=== PATIENT | female | born 1975 | race African-American/Black ===

== ENCOUNTER 2024-02-12 11:00 | Emergency (ER) | payer MEDICAID ==
[~2024-02-12] VITALS: Ht 175.2 cm; Wt 95.3 kg
[2024-02-12] MEDS ORDERED: MORPHINE Sulfate 2 MG/ML SYR IV ONE ×2 (11:35→12:35)
[2024-02-12 14:03] LABS: BASO % 0.4 % (0.0-1.0); EOS # 0.1 10*3/uL (0.0-0.4); EOS % 0.9 % (1.0-4.0); HEMATOCRIT 33.9 % (37.0-47.0); LYMPH # 2.3 10*3/uL (1.3-4.4); LYMPH % 22.4 % (27.0-41.0); MEAN CELL VOLUME 93.6 fl (81.0-99.0); MEAN CORPUSCULAR HGB 28.2 pg (27.0-31.0); MEAN CORPUSCULAR HGB CONC 30.1 g/dl (33.0-37.0); MEAN PLATELET VOLUME 8.6 fl (9.6-12.3); MONO # 0.7 10*3/uL (0.1-1.0); MONO % 7.1 % (3.0-9.0); NEUT % 68.8 % (47.0-73.0); PLATELET COUNT AUTOMATED 589 10*3/uL (130-400); RED BLOOD COUNT 3.62 10*6/uL (4.10-5.10); RED CELL DISTRI WIDTH 17.2 % (0-14.5); WHITE BLOOD COUNT 10.1 10*3/uL (4.8-10.8)
[2024-02-12 14:23] LABS: ALKALINE PHOSPHATASE 197 U/L (46-116); BUN 26 mg/dl (9-23); CHLORIDE 105 mmol/L (98-107); CPK 18 U/L (34-171); POTASSIUM 4.4 mmol/L (3.4-5.1); SGPT/ALT 13 U/L (5-49); TOTAL PROTEIN 7.3 gm/dL (6.0-8.0)
[2024-02-12] MEDS ORDERED: ACETAMINOPHEN325 M2 PO (15:21)
[2024-02-12] MEDS ORDERED: ATIVAN0.5 MG PO (15:22)
[2024-02-12] MEDS ORDERED: ASPIRIN81 M1 PO (15:22)
[2024-02-12] MEDS ORDERED: ATIVAN1 MG PO (15:24)
[2024-02-12] MEDS ORDERED: DULCOLAX10 M1 R (15:25)
[2024-02-12] MEDS ORDERED: FENTANYL1 EAC3 T (15:29)
[2024-02-12] MEDS ORDERED: ACIDOPHILUS1 EAC4 PO (15:30)
[2024-02-12] MEDS ORDERED: TRESIBA FL100 UNIT/1 SQ (15:32)
[2024-02-12] MEDS ORDERED: INSULIN LI100 UNIT/1 SQ (15:35)
[2024-02-12] MEDS ORDERED: MELOXICAM15 MG PO (15:36)
[2024-02-12] MEDS ORDERED: MONTELUKAST SOD10 MG PO (15:36)
[2024-02-12] MEDS ORDERED: OXYCODONE HCL10 M1 PO (15:37)
[2024-02-12] MEDS ORDERED: NEURONTIN400 MG PO (15:37)
[2024-02-12] MEDS ORDERED: PRILOSEC20 M1 PO (15:38)
[2024-02-12 15:44] LABS: BILIRUBIN Negative (Negative); BLOOD 3+ (Negative); CLARITY Turbid (Clear); COLOR Dark Yellow (Yellow); GLUCOSE Negative (Negative); KETONE Trace (Negative); LEUKO ESTERASE 3+ (Negative); NITRITE Negative (Negative); SPECIFIC GRAVITY 1.025 (1.001-1.030); UROBILINOGEN 0.2 E.U./dl (0.0-1.0)
[2024-02-12 16:00] LABS: BACTERIA 3+; RBC TNTC rbc/hpf (0-2); WBC TNTC wbc/hpf (0-5)
[2024-02-12 16:02] LABS: CALCIUM OXALATE CRYSTALS 1+
[2024-02-12] MEDS ORDERED: WELLBUTRIN SR150 MG PO (16:09)
[2024-02-12] MEDS ORDERED: B-100 COMPLEX100 MG PO (16:10)
[2024-02-12] MEDS ORDERED: XARE20MG PO (16:11)
[2024-02-12] MEDS ORDERED: VITAMIN C500 M4 PO (16:11)
[2024-02-12] MEDS ORDERED: ZINC-22050 MG PO (16:12)
[2024-02-12] MEDS ORDERED: Ondansetron4 MG PO (16:13)
[2024-02-12] MEDS ORDERED: Ceftriaxone Sodium 1 GM/10 ML SYR IV ONE (16:20)
== END 2024-02-12 17:18 ==
LOC: ED 11:00
PROVIDERS: Physician Assistant Medical
DX: L89.154 Pressure ulcer of sacral region, stage 4 (principal); L89.894 Pressure ulcer of other site, stage 4; L89.524 Pressure ulcer of left ankle, stage 4; L89.514 Pressure ulcer of right ankle, stage 4; L89.212 Pressure ulcer of right hip, stage 2; L89.814 Pressure ulcer of head, stage 4; N39.0 Urinary tract infection, site not specified; I10 Essential (primary) hypertension; E11.9 Type 2 diabetes mellitus without complications; Z88.0 Allergy status to penicillin; Z79.899 Other long term (current) drug therapy; Z79.82 Long term (current) use of aspirin; Z79.4 Long term (current) use of insulin

== ENCOUNTER 2024-02-19 01:27 | Emergency (ER) | payer MEDICAID ==
[~2024-02-19 01:27] MED LIST: ACETAMINOPHEN325 M2 PO; ACIDOPHILUS1 EAC4 PO; ASPIRIN81 M1 PO; ATIVAN0.5 MG PO; ATIVAN1 MG PO; B-100 COMPLEX100 MG PO; DULCOLAX10 M1 R; FENTANYL1 EAC3 T; INSULIN LI100 UNIT/1 SQ; MELOXICAM15 MG PO; MONTELUKAST SOD10 MG PO; NEURONTIN400 MG PO; OXYCODONE HCL10 M1 PO; Ondansetron4 MG PO; PRILOSEC20 M1 PO; TRESIBA FL100 UNIT/1 SQ; VITAMIN C500 M4 PO; WELLBUTRIN SR150 MG PO; XARE20MG PO; ZINC-22050 MG PO
[2024-02-19 02:02] LABS: BASO % 0.3 % (0.0-1.0); EOS % 0.3 % (1.0-4.0); HEMATOCRIT 35.6 % (37.0-47.0); LYMPH # 2.8 10*3/uL (1.3-4.4); LYMPH % 21.1 % (27.0-41.0); MEAN CELL VOLUME 93.4 fl (81.0-99.0); MEAN CORPUSCULAR HGB 28.1 pg (27.0-31.0); MEAN CORPUSCULAR HGB CONC 30.1 g/dl (33.0-37.0); MEAN PLATELET VOLUME 8.7 fl (9.6-12.3); MONO # 0.9 10*3/uL (0.1-1.0); MONO % 6.9 % (3.0-9.0); NEUT # 9.3 10*3/uL (2.3-7.9); NEUT % 71.1 % (47.0-73.0); PLATELET COUNT AUTOMATED 748 10*3/uL (130-400); RED BLOOD COUNT 3.81 10*6/uL (4.10-5.10); RED CELL DISTRI WIDTH 17.5 % (0-14.5); WHITE BLOOD COUNT 13.1 10*3/uL (4.8-10.8)
[2024-02-19 02:24] LABS: ALKALINE PHOSPHATASE 199 U/L (46-116); BUN 30 mg/dl (9-23); CHLORIDE 107 mmol/L (98-107); POTASSIUM 4.1 mmol/L (3.4-5.1); SGPT/ALT 19 U/L (5-49); TOTAL PROTEIN 7.9 gm/dL (6.0-8.0)
[2024-02-19] MEDS ORDERED: SODIUM CHLORIDE 0.9% 1,000 ML IV ONE (05:35)
[2024-02-19] MEDS ORDERED: MAGNESIUM OXIDE 400 MG TAB PO ONE (05:35)
[2024-02-19] MEDS ORDERED: Acetaminophen/Hydrocodone 5 MG/325 MG TABLET PO ONE (06:15)
[2024-02-19] MEDS ORDERED: Ondansetron Hydrochloride 4 MG TAB SL ONE (06:15)
[2024-02-19] MEDS ORDERED: VAZALORE81 MG PO (15:19)
[2024-02-19] MEDS ORDERED: VITAMIN D31250 MC2 PO (15:25)
[2024-02-19] MEDS ORDERED: LOTRISONE 0.05%15 GM T (15:29)
[2024-02-19] MEDS ORDERED: FLEET ENEMA 13133 ML R (15:34)
[2024-02-19] MEDS ORDERED: IMODIUM A-1 MG/7.51 PO (15:38)
[2024-02-19] MEDS ORDERED: LITHIUM CARBON300 MG PO (15:40)
[2024-02-19] MEDS ORDERED: MILK OF MA400 MG/53 PO (15:42)
[2024-02-19] MEDS ORDERED: OXYCODONE HCL10 M1 PO (15:57)
[2024-02-19] MEDS ORDERED: OXYCODONE HCL5 MG PO (15:59)
[2024-02-19] MEDS ORDERED: PAROEX473 ML PO (16:04)
[2024-02-19] MEDS ORDERED: RISPERDAL0.5 MG PO (16:12)
[2024-02-19] MEDS ORDERED: [UNRECOGNIZED DRUG - OTHER] PO (16:18)
== END 2024-02-19 07:48 | disposition left against medical advice (07) ==
LOC: ED 01:27
PROVIDERS: Internal Medicine
DX: L89.134 Pressure ulcer of right lower back, stage 4 (principal); L89.144 Pressure ulcer of left lower back, stage 4; E83.52 Hypercalcemia; E83.42 Hypomagnesemia; D72.829 Elevated white blood cell count, unspecified; D64.9 Anemia, unspecified; E43 Unspecified severe protein-calorie malnutrition; Z68.1 Body mass index [BMI] 19.9 or less, adult; D75.839 Thrombocytosis, unspecified; E11.22 Type 2 diabetes mellitus with diabetic chronic kidney disease; N18.9 Chronic kidney disease, unspecified; N17.9 Acute kidney failure, unspecified; Z86.73 Personal history of transient ischemic attack (TIA), and cerebral infarction without residual deficits; F41.9 Anxiety disorder, unspecified; Z53.29 Procedure and treatment not carried out because of patient's decision for other reasons; Z88.0 Allergy status to penicillin

== ENCOUNTER 2024-02-19 11:37 | Inpatient (IN) | payer MEDICAID ==
[~2024-02-19] VITALS: Ht 175.2 cm; Wt 95.3 kg
[2024-02-19 13:00] VITALS: BP 114/90
[2024-02-19] MEDS ORDERED: Acetaminophen/Hydrocodone 5 MG/325 MG TABLET PO PRN (13:35)
[2024-02-19] MEDS ORDERED: Ondansetron Hydrochloride 4 MG/2 ML VIAL IV PRN (13:35)
[2024-02-19] MEDS ORDERED: Magnesium Hydroxide 30 ML UDC PO PRN (13:35)
[2024-02-19] MEDS ORDERED: TEMAZEPAM 15 MG CAP PO PRN (13:35)
[2024-02-19] MEDS ORDERED: ACETAMINOPHEN 325 MG TAB PO PRN (13:35)
[2024-02-19] MEDS ORDERED: MORPHINE Sulfate 2 MG/ML SYR IV PRN (13:35)
[2024-02-19] MEDS ORDERED: BISACODYL 5 MG TAB PO PRN (13:35)
[2024-02-19] MEDS ORDERED: SODIUM CHLORIDE 0.9% 1,000 ML IV ONE (13:45)
[2024-02-19] MEDS ORDERED: Menthol/Zinc Oxide 4 GM THIN T SCH (13:55)
[2024-02-19] MEDS ORDERED: DEXTROSE 10 % IN WATER 250 ML IV PRN (13:55)
[2024-02-19] MEDS ORDERED: Meropenem 1 GM in SODIUM CHLORIDE 0.9% 100 ML IV SCH (14:00)
[2024-02-19] MEDS ORDERED: FOAM BANDAGE 5X5 T ONE (14:36)
[2024-02-19] MEDS ORDERED: HEEL PROTECTOR DEVICE ONE (14:36)
[2024-02-19] MEDS ORDERED: FOAM BANDAGE 6X6 T ONE (14:36)
[2024-02-19] MEDS ORDERED: fentaNYL 25 MCG PATCH T SCH (15:05)
[2024-02-19] MEDS ORDERED: OXYCODONE HCL (IR) 5 MG TAB PO PRN (15:05)
[2024-02-19] MEDS ORDERED: LORazepam 1 MG TAB PO PRN (15:05)
[2024-02-19] MEDS ORDERED: VAZALORE81 MG PO (15:19)
[2024-02-19] MEDS ORDERED: VITAMIN D31250 MC2 PO (15:25)
[2024-02-19] MEDS ORDERED: MAGNESIUM SULFATE 50 ML IV ONE (15:25)
[2024-02-19] MEDS ORDERED: LOTRISONE 0.05%15 GM T (15:29)
[2024-02-19] MEDS ORDERED: FLEET ENEMA 13133 ML R (15:34)
[2024-02-19] MEDS ORDERED: IMODIUM A-1 MG/7.51 PO (15:38)
[2024-02-19] MEDS ORDERED: LITHIUM CARBON300 MG PO (15:40)
[2024-02-19] MEDS ORDERED: MILK OF MA400 MG/53 PO (15:42)
[2024-02-19] MEDS ORDERED: OXYCODONE HCL10 M1 PO (15:57)
[2024-02-19] MEDS ORDERED: OXYCODONE HCL5 MG PO (15:59)
[2024-02-19] MEDS ORDERED: PAROEX473 ML PO (16:04)
[2024-02-19] MEDS ORDERED: RISPERDAL0.5 MG PO (16:12)
[2024-02-19] MEDS ORDERED: [UNRECOGNIZED DRUG - OTHER] PO (16:18)
[2024-02-19] MEDS ORDERED: INSULIN LISPRO 1 UNIT/0.01 ML SQ SCH (16:30)
[2024-02-19] MEDS ORDERED: DIAZEPAM 10 MG/2 ML SYR IV ONE (17:00)
[2024-02-19] MEDS ORDERED: Chlorhexidine Gluconate 15 ML MOUTHWASH T SCH (18:00)
[2024-02-19] MEDS ORDERED: RIVAROXABAN 20 MG TAB PO SCH (18:00)
[2024-02-19 20:00] VITALS: BP 115/65
[2024-02-19] MEDS ORDERED: VANCOMYCIN/WATER FOR INJ (PEG) 250 ML IV SCH (22:00)
[2024-02-19] MEDS ORDERED: RISPERIDONE 0.5 MG TAB PO SCH (22:00)
[2024-02-19] MEDS ORDERED: Montelukast Sodium 10 MG TAB PO SCH (22:00)
[2024-02-19] MEDS ORDERED: NYSTATIN 15 GM BOT T SCH (22:00)
[2024-02-19] MEDS ORDERED: OXYCODONE HCL (IR) 10 MG TABLET PO SCH (22:00)
[2024-02-20 06:48] LABS: BILIRUBIN Negative (Negative); BLOOD 3+ (Negative); CLARITY Turbid (Clear); COLOR Yellow (Yellow); GLUCOSE Negative (Negative); KETONE 1+ (Negative); LEUKO ESTERASE 3+ (Negative); NITRITE Positive (Negative); SPECIFIC GRAVITY 1.025 (1.001-1.030)
[2024-02-20 07:01] LABS: WBC TNTC wbc/hpf (0-5)
[2024-02-20 07:02] LABS: BACTERIA 2+; CALCIUM OXALATE CRYSTALS 1+; RBC 21-30 rbc/hpf (0-2)
[2024-02-20 08:00] VITALS: BP 118/57
[2024-02-20] MEDS ORDERED: FOAM BANDAGE 6X6 T ONE ×2 (08:40)
[2024-02-20] MEDS ORDERED: FOAM BANDAGE 5X5 T ONE (08:40)
[2024-02-20] MEDS ORDERED: HYDROGEL WOUND DRESSING T ONE (08:40)
[2024-02-20 09:00] LABS: BASO # 0.1 10*3/uL (0.0-0.1); BASO % 0.3 % (0.0-1.0); EOS # 0.3 10*3/uL (0.0-0.4); EOS % 1.6 % (1.0-4.0); HEMATOCRIT 34.1 % (37.0-47.0); LYMPH % 22.8 % (27.0-41.0); MEAN CELL VOLUME 93.9 fl (81.0-99.0); MEAN CORPUSCULAR HGB 27.5 pg (27.0-31.0); MEAN CORPUSCULAR HGB CONC 29.3 g/dl (33.0-37.0); MEAN PLATELET VOLUME 8.8 fl (9.6-12.3); MONO # 1.2 10*3/uL (0.1-1.0); MONO % 6.9 % (3.0-9.0); NEUT # 11.8 10*3/uL (2.3-7.9); NEUT % 67.9 % (47.0-73.0); PLATELET COUNT AUTOMATED 629 10*3/uL (130-400); RED BLOOD COUNT 3.63 10*6/uL (4.10-5.10); RED CELL DISTRI WIDTH 17.2 % (0-14.5); WHITE BLOOD COUNT 17.4 10*3/uL (4.8-10.8)
[2024-02-20 09:24] LABS: POTASSIUM 4.6 mmol/L (3.4-5.1); TOTAL PROTEIN 7.4 gm/dL (6.0-8.0)
[2024-02-20] MEDS ORDERED: RIVAROXABAN 20 MG TAB PO SCH (10:00)
[2024-02-20] MEDS ORDERED: OMEPRAZOLE 20 MG CAP PO SCH (10:00)
[2024-02-20] MEDS ORDERED: buPROPion SR 150 MG TAB PO SCH (10:00)
[2024-02-20] MEDS ORDERED: Sodium Hypochlorite 0.125% (1/4 STRENGTH DAKIN'S) 480 ML SOL T SCH ×2 (10:00)
[2024-02-20] MEDS ORDERED: ASCORBIC ACID 500 MG TAB PO SCH (10:00)
[2024-02-20] MEDS ORDERED: HYDROmorphONE Hydrochloride 1 MG/ML SYR IV ONE (10:30)
[2024-02-20 12:00] VITALS: BP 128/42; BP 136/47
[2024-02-20 16:00] VITALS: BP 138/91
[2024-02-20 20:00] VITALS: BP 135/91; BP 140/54
[2024-02-21] VITALS: BP 130/86; BP 137/101
[2024-02-21 08:00] VITALS: BP 95/62
[2024-02-21 12:00] VITALS: BP 123/82
[2024-02-21 16:00] VITALS: BP 100/60; BP 139/98
[2024-02-21 20:00] VITALS: BP 152/97
[2024-02-21] MEDS ORDERED: Sodium Hypochlorite 0.125% (1/4 STRENGTH DAKIN'S) 480 ML SOL T SCH (22:00)
[2024-02-22] VITALS: BP 115/61
[2024-02-22] MEDS ORDERED: FOAM BANDAGE 4X4 T ONE (04:39)
[2024-02-22] MEDS ORDERED: FOAM BANDAGE 1 EACH BANDAGE T ONE ×2 (04:39)
[2024-02-22 05:53] LABS: ALKALINE PHOSPHATASE 193 U/L (46-116); BUN 34 mg/dl (9-23); CHLORIDE 114 mmol/L (98-107); POTASSIUM 3.7 mmol/L (3.4-5.1); SGPT/ALT 40 U/L (5-49); TOTAL PROTEIN 6.9 gm/dL (6.0-8.0)
[2024-02-22 06:03] LABS: BASO # 0.1 10*3/uL (0.0-0.1); BASO % 0.5 % (0.0-1.0); EOS # 0.6 10*3/uL (0.0-0.4); EOS % 5.2 % (1.0-4.0); HEMATOCRIT 31.1 % (37.0-47.0); LYMPH # 2.5 10*3/uL (1.3-4.4); LYMPH % 22.9 % (27.0-41.0); MEAN CELL VOLUME 92.3 fl (81.0-99.0); MEAN CORPUSCULAR HGB 28.2 pg (27.0-31.0); MEAN CORPUSCULAR HGB CONC 30.5 g/dl (33.0-37.0); MEAN PLATELET VOLUME 8.8 fl (9.6-12.3); MONO # 0.8 10*3/uL (0.1-1.0); MONO % 7.1 % (3.0-9.0); NEUT % 63.8 % (47.0-73.0); PLATELET COUNT AUTOMATED 611 10*3/uL (130-400); RED BLOOD COUNT 3.37 10*6/uL (4.10-5.10); RED CELL DISTRI WIDTH 17.2 % (0-14.5)
[2024-02-22 08:00] VITALS: BP 145/99
[2024-02-22 16:00] VITALS: BP 110/60
[2024-02-22 20:00] VITALS: BP 128/74
[2024-02-23 06:44] LABS: BASO % 0.2 % (0.0-1.0); EOS % 0.2 % (1.0-4.0); HEMATOCRIT 31.7 % (37.0-47.0); LYMPH # 1.4 10*3/uL (1.3-4.4); LYMPH % 17.8 % (27.0-41.0); MEAN CELL VOLUME 93.8 fl (81.0-99.0); MEAN CORPUSCULAR HGB 27.8 pg (27.0-31.0); MEAN CORPUSCULAR HGB CONC 29.7 g/dl (33.0-37.0); MONO # 0.4 10*3/uL (0.1-1.0); MONO % 5.3 % (3.0-9.0); NEUT # 6.1 10*3/uL (2.3-7.9); PLATELET COUNT AUTOMATED 583 10*3/uL (130-400); RED BLOOD COUNT 3.38 10*6/uL (4.10-5.10); RED CELL DISTRI WIDTH 17.5 % (0-14.5); WHITE BLOOD COUNT 8.1 10*3/uL (4.8-10.8)
[2024-02-23 07:43] LABS: ALKALINE PHOSPHATASE 192 U/L (46-116); BUN 34 mg/dl (9-23); CHLORIDE 116 mmol/L (98-107); POTASSIUM 3.4 mmol/L (3.4-5.1); SGPT/ALT 49 U/L (5-49); TOTAL PROTEIN 6.7 gm/dL (6.0-8.0)
[2024-02-23 08:00] VITALS: BP 107/82
[2024-02-23] MEDS ORDERED: Vancomycin Hydrochloride 1,000 MG in SODIUM CHLORIDE 0.9% 250 ML IV SCH (10:00)
[2024-02-23 12:00] VITALS: BP 110/86
[2024-02-23] MEDS ORDERED: HYDROmorphONE Hydrochloride 0.5 MG/0.5 ML SYRINGE IV ONE (14:35)
[2024-02-23 20:00] VITALS: BP 113/72
[2024-02-24] VITALS: BP 93/72
[2024-02-24] MEDS ORDERED: FOAM BANDAGE 1 EACH BANDAGE T ONE (05:31)
[2024-02-24 08:00] VITALS: BP 97/72
[2024-02-24 08:41] LABS: BUN 36 mg/dl (9-23); CHLORIDE 122 mmol/L (98-107); POTASSIUM 3.3 mmol/L (3.4-5.1)
[2024-02-24] MEDS ORDERED: POTASSIUM CHLORIDE 20 MEQ TAB PO ONE (09:05)
[2024-02-24 09:40] LABS: BASO % 0.3 % (0.0-1.0); EOS # 0.4 10*3/uL (0.0-0.4); EOS % 3.8 % (1.0-4.0); HEMATOCRIT 38.9 % (37.0-47.0); MEAN CELL VOLUME 93.1 fl (81.0-99.0); MEAN CORPUSCULAR HGB 27.8 pg (27.0-31.0); MEAN CORPUSCULAR HGB CONC 29.8 g/dl (33.0-37.0); MEAN PLATELET VOLUME 8.8 fl (9.6-12.3); MONO # 0.8 10*3/uL (0.1-1.0); MONO % 7.9 % (3.0-9.0); NEUT # 7.2 10*3/uL (2.3-7.9); NEUT % 68.5 % (47.0-73.0); PLATELET COUNT AUTOMATED 617 10*3/uL (130-400); RED BLOOD COUNT 4.18 10*6/uL (4.10-5.10); RED CELL DISTRI WIDTH 18.4 % (0-14.5); WHITE BLOOD COUNT 10.5 10*3/uL (4.8-10.8)
[2024-02-24] MEDS ORDERED: DEXTROSE 5% 1,000 ML IV SCH (09:50)
[2024-02-24 12:00] VITALS: BP 97/58
[2024-02-24 16:00] VITALS: BP 131/56
[2024-02-24 20:00] VITALS: BP 146/91
[2024-02-25 05:56] LABS: POTASSIUM 3.9 mmol/L (3.4-5.1)
[2024-02-25 06:08] LABS: BASO % 0.3 % (0.0-1.0); EOS # 0.5 10*3/uL (0.0-0.4); EOS % 4.3 % (1.0-4.0); HEMATOCRIT 32.7 % (37.0-47.0); LYMPH # 3.1 10*3/uL (1.3-4.4); LYMPH % 27.7 % (27.0-41.0); MEAN CELL VOLUME 91.3 fl (81.0-99.0); MEAN CORPUSCULAR HGB 27.7 pg (27.0-31.0); MEAN CORPUSCULAR HGB CONC 30.3 g/dl (33.0-37.0); MEAN PLATELET VOLUME 9.2 fl (9.6-12.3); MONO # 0.8 10*3/uL (0.1-1.0); MONO % 6.9 % (3.0-9.0); NEUT # 6.6 10*3/uL (2.3-7.9); NEUT % 60.3 % (47.0-73.0); PLATELET COUNT AUTOMATED 605 10*3/uL (130-400); RED BLOOD COUNT 3.58 10*6/uL (4.10-5.10); RED CELL DISTRI WIDTH 18.2 % (0-14.5)
[2024-02-25 08:00] VITALS: BP 123/71
[2024-02-25] MEDS ORDERED: Sulfamethoxazole/Trimethopri 1 TAB TAB PO SCH (10:00)
[2024-02-25 12:00] VITALS: BP 119/79
[2024-02-25] MEDS ORDERED: LITHIUM CARBONATE 300 MG CAP PO SCH (14:00)
[2024-02-25 16:00] VITALS: BP 126/60
[2024-02-25] MEDS ORDERED: Lactobacillus Acidophilus/LA 1 TAB TAB PO SCH (18:00)
[2024-02-25 20:00] VITALS: BP 95/61
[2024-02-26] VITALS: BP 91/45
[2024-02-26 06:07] LABS: POTASSIUM 3.7 mmol/L (3.4-5.1); TOTAL PROTEIN 6.2 gm/dL (6.0-8.0)
[2024-02-26 06:12] LABS: BASO % 0.4 % (0.0-1.0); EOS # 0.9 10*3/uL (0.0-0.4); EOS % 8.6 % (1.0-4.0); HEMATOCRIT 31.1 % (37.0-47.0); LYMPH # 3.2 10*3/uL (1.3-4.4); LYMPH % 31.2 % (27.0-41.0); MEAN CELL VOLUME 92.3 fl (81.0-99.0); MEAN CORPUSCULAR HGB 27.9 pg (27.0-31.0); MEAN CORPUSCULAR HGB CONC 30.2 g/dl (33.0-37.0); MEAN PLATELET VOLUME 9.7 fl (9.6-12.3); MONO # 0.7 10*3/uL (0.1-1.0); MONO % 7.2 % (3.0-9.0); NEUT # 5.3 10*3/uL (2.3-7.9); NUCLEATED RED BLOOD CELL 0.4 % (0.0-0.0); PLATELET COUNT AUTOMATED 455 10*3/uL (130-400); RED BLOOD COUNT 3.37 10*6/uL (4.10-5.10); RED CELL DISTRI WIDTH 18.8 % (0-14.5); WHITE BLOOD COUNT 10.2 10*3/uL (4.8-10.8)
[2024-02-26 08:00] VITALS: BP 98/56
[2024-02-26] MEDS ORDERED: SODIUM CHLORIDE 0.9% 100 ML BAG IV ONE (10:02)
[2024-02-26] MEDS ORDERED: Meropenem 1 GM VIAL IV ONE (10:02)
[2024-02-26] MEDS ORDERED: PREMIERPRO RX ME1 GM IV (10:18)
[2024-02-26] MEDS ORDERED: ATIVAN0.5 MG PO (10:18)
[2024-02-26] MEDS ORDERED: Humalog SQ (10:18)
[2024-02-26 12:00] VITALS: BP 100/58
[2024-02-28] MEDS ORDERED: ERGOCALCIFEROL 50,000 IU CAP (1.25 MG) PO SCH (10:00)
== END 2024-02-26 14:05 | DRG 720 ==
LOC: 4E 11:37
PROVIDERS: Family Medicine; Internal Medicine; Occupational Therapist; Student in an Organized Health Care Education/Training Program; ADMIT Student in an Organized Health Care Education/Training Program; ATTEND Student in an Organized Health Care Education/Training Program
PROC: 05H933Z Insertion of Infusion Device into Right Brachial Vein, Percutaneous Approach (ICD-10-PCS; principal; 2024-02-21)
PROC: B54MZZA Ultrasonography of Right Upper Extremity Veins, Guidance (ICD-10-PCS; 2024-02-21)
DX: A41.9 Sepsis, unspecified organism (principal); N17.0 Acute kidney failure with tubular necrosis; E43 Unspecified severe protein-calorie malnutrition; L89.154 Pressure ulcer of sacral region, stage 4; L89.314 Pressure ulcer of right buttock, stage 4; L89.324 Pressure ulcer of left buttock, stage 4; L89.814 Pressure ulcer of head, stage 4; L89.524 Pressure ulcer of left ankle, stage 4; L89.514 Pressure ulcer of right ankle, stage 4; L89.894 Pressure ulcer of other site, stage 4; L89.101 Pressure ulcer of unspecified part of back, stage 1; L89.616 Pressure-induced deep tissue damage of right heel; G82.20 Paraplegia, unspecified; N39.0 Urinary tract infection, site not specified; E83.42 Hypomagnesemia; E66.01 Morbid (severe) obesity due to excess calories; R65.20 Severe sepsis without septic shock; D64.9 Anemia, unspecified; D75.839 Thrombocytosis, unspecified; F31.9 Bipolar disorder, unspecified; J45.909 Unspecified asthma, uncomplicated; F41.9 Anxiety disorder, unspecified; M54.50 Low back pain, unspecified; G89.29 Other chronic pain; K21.9 Gastro-esophageal reflux disease without esophagitis; Z16.12 Extended spectrum beta lactamase (ESBL) resistance; E11.42 Type 2 diabetes mellitus with diabetic polyneuropathy; I50.22 Chronic systolic (congestive) heart failure; G40.909 Epilepsy, unspecified, not intractable, without status epilepticus; R41.9 Unspecified symptoms and signs involving cognitive functions and awareness; M86.69 Other chronic osteomyelitis, multiple sites; E11.69 Type 2 diabetes mellitus with other specified complication; B96.1 Klebsiella pneumoniae [K. pneumoniae] as the cause of diseases classified elsewhere; Z93.3 Colostomy status; Z86.73 Personal history of transient ischemic attack (TIA), and cerebral infarction without residual deficits; Z90.49 Acquired absence of other specified parts of digestive tract; Z88.0 Allergy status to penicillin; Z82.3 Family history of stroke; Z82.49 Family history of ischemic heart disease and other diseases of the circulatory system; Z79.4 Long term (current) use of insulin; Z79.1 Long term (current) use of non-steroidal anti-inflammatories (NSAID); Z79.82 Long term (current) use of aspirin; Z79.899 Other long term (current) drug therapy; Z68.33 Body mass index [BMI] 33.0-33.9, adult